=== PATIENT | female | born 2000 | race Caucasian/White ===

== ENCOUNTER 2018-04-11 22:58 | Emergency (ER) | payer OTHER | END 2018-04-12 01:55 | disposition home or self-care (01) | LOC: FTE 22:58 | DX: L02.511 Cutaneous abscess of right hand (principal) | CPT/HCPCS: 99284; Z7502 ==

== ENCOUNTER 2018-05-31 23:03 | Emergency (ER) | payer OTHER ==
[2018-06-01] MEDS: ACETAMINOPHEN 325 MG TAB PO (02:59)
[2018-06-01 03:08] LABS: ADD MAN DIFF? NO
[2018-06-01 03:12] LABS: WHITE BLOOD COUNT 11.4 10^3/ul (4.8-10.8)
[2018-06-01 03:12] LABS: BASOPHILS % 0.3 % (0.0-2.0); EOSINOPHILS % 0.1 % (0.0-7.0); HEMATOCRIT 35.4 % (37.0-47.0); HEMOGLOBIN 11.7 g/dl (12.0-16.0); LYMPHOCYTES # 1.3 10^3/ul (0.8-2.9); LYMPHOCYTES % 11.3 % (18.0-55.0); MEAN CORPUSCULAR HGB CONC 33.1 g/dl (32.0-37.0); MEAN CORPUSCULAR VOLUME 96.7 fl (72.0-104.0); MEAN PLATELET VOLUME 9.3 fl (7.4-10.4); MONOCYTE # 1.2 10^3/ul (0.3-0.9); MONOCYTES % 10.4 % (0.0-13.0); NEUTROPHIL # 8.8 10^3/ul (1.6-7.5); NEUTROPHILS % 77.4 % (30.0-74.0); PLATELET COUNT 189 10^3/UL (140-415); RED BLOOD COUNT 3.66 10^6/ul (4.20-5.40); RED CELL DISTRIBUTION WIDTH 12.4 % (11.5-14.5)
[2018-06-01 03:25] LABS: ADD UMIC YES; UR AMORPHOUS CRYSTAL FEW /HPF (NONE SEEN); UR ASCORBIC ACID NEGATIVE (NEGATIVE); UR BACTERIA MODERATE /HPF (NONE SEEN); UR BILIRUBIN (Dip) NEGATIVE (NEGATIVE); UR BLOOD (Dip) 1+ mg/dL (NEGATIVE); UR CLARITY SLIGHTLY CLOUDY (CLEAR); UR COLOR YELLOW (YELLOW); UR GLUCOSE (Dip) NEGATIVE (NEGATIVE); UR KETONES (Dip) TRACE mg/dL (NEGATIVE); UR LEUKOCYTE ESTERASE (Dip) 1+ Leu/ul (NEGATIVE); UR MUCUS FEW /HPF (NONE SEEN); UR NITRITE (Dip) POSITIVE (NEGATIVE); UR RBC 2 /HPF (0-5); UR SQUAMOUS EPITHELIAL CELL FEW /HPF (FEW); UR TOTAL PROTEIN (Dip) NEGATIVE (NEGATIVE); UR UROBILINOGEN (Dip) NEGATIVE (NEGATIVE); UR WBC 36 /HPF (0-5)
[2018-06-01 03:34] LABS: ALANINE AMINOTRANSFERASE 28 IU/L (13-69); ALBUMIN 4.2 g/dl (3.3-4.9); ALBUMIN/GLOBULIN RATIO 1.35; ALKALINE PHOSPHATASE 56 IU/L (42-121); ANION GAP 16 (8-16); ASPARTATE AMINO TRANSFERASE 18 IU/L (15-46); BILIRUBIN,INDIRECT 0.6 mg/dl (0-1.1); BILIRUBIN,TOTAL 0.6 mg/dl (0.2-1.3); BLOOD UREA NITROGEN 8 mg/dl (7-20); CALCIUM 8.8 mg/dl (8.4-10.2); CARBON DIOXIDE 25 mmol/L (21-31); CHLORIDE 103 mmol/L (97-110); CREATININE 0.79 mg/dl (0.44-1.00); GLUCOSE 122 mg/dl (70-220); LIPASE 350 U/L (23-300); POTASSIUM 4.3 mmol/L (3.5-5.1); SODIUM 140 mmol/L (135-144); TOTAL PROTEIN 7.3 g/dl (6.1-8.1)
[2018-06-01] MEDS: CEFTRIAXONE 1 GM INJ IM (03:56)
[2018-06-01] MEDS: LIDOCAINE 2% (MDV) 20 ML INJ INJ (03:56)
== END 2018-06-01 05:04 | disposition home or self-care (01) ==
LOC: FTE 23:03
DX: N12 Tubulo-interstitial nephritis, not specified as acute or chronic (principal)
CPT/HCPCS: 36415; 80053; 81001; 83690; 84703; 85025; 96372; 99284-25

== ENCOUNTER 2018-06-30 23:48 | Emergency (ER) | payer OTHER ==
[2018-07-01 02:35] LABS: URINE BLOOD (Dip) POC Negative (NEGATIVE); URINE GLUCOSE (Dip) POC Negative (NEGATIVE); URINE KETONES (Dip) POC Negative (NEGATIVE); URINE LEUKOCYTE EST (Dip) POC Negative (NEGATIVE); URINE NITRITE (Dip) POC Negative (NEGATIVE); URINE TOTAL PROTEIN POC Negative (NEGATIVE)
[2018-07-01] MEDS: ONDANSETRON (ODT) 4 MG TAB ODT (02:44)
[2018-07-01] MEDS: IBUPROFEN 600 MG TAB PO (02:45)
== END 2018-07-01 04:17 | disposition home or self-care (01) ==
LOC: FTE 23:48
DX: R10.31 Right lower quadrant pain (principal); R10.32 Left lower quadrant pain; R11.2 Nausea with vomiting, unspecified
CPT/HCPCS: 81003; 81025; 99283

== ENCOUNTER 2018-09-21 15:57 | Emergency (ER) | payer SELFPAY, OTHER | END 2018-09-21 18:26 | disposition left against medical advice (07) | LOC: FTE 15:57 | DX: Z53.21 Procedure and treatment not carried out due to patient leaving prior to being seen by health care provider (principal) ==

== ENCOUNTER 2018-11-02 16:36 | Emergency (ER) | payer OTHER ==
[2018-11-02] MEDS: METOCLOPRAMIDE 10 MG TAB PO (18:01)
[2018-11-02] MEDS: ACETAMINOPHEN 500 MG TAB PO (18:01)
[2018-11-02 18:12] LABS: ADD UMIC NO; UR ASCORBIC ACID 40 mg/dL (NEGATIVE); UR BILIRUBIN (Dip) NEGATIVE (NEGATIVE); UR BLOOD (Dip) NEGATIVE (NEGATIVE); UR CLARITY CLEAR (CLEAR); UR COLOR YELLOW (YELLOW); UR GLUCOSE (Dip) NEGATIVE (NEGATIVE); UR KETONES (Dip) NEGATIVE (NEGATIVE); UR LEUKOCYTE ESTERASE (Dip) NEGATIVE Leu/ul (NEGATIVE); UR NITRITE (Dip) NEGATIVE (NEGATIVE); UR SPECIFIC GRAVITY (Dip) 1.016 (1.003-1.030); UR TOTAL PROTEIN (Dip) NEGATIVE (NEGATIVE); UR UROBILINOGEN (Dip) NEGATIVE (NEGATIVE)
== END 2018-11-02 19:02 | disposition home or self-care (01) ==
LOC: FTE 16:36
DX: O26.891 Other specified pregnancy related conditions, first trimester (principal); R11.0 Nausea; Z3A.13 13 weeks gestation of pregnancy
CPT/HCPCS: 81003; 99283

== ENCOUNTER 2018-11-29 19:37 | Inpatient (IN) | payer OTHER ==
[2018-11-29] MEDS: ACETAMINOPHEN 325 MG TAB PO (21:12)
[2018-11-29 21:18] LABS: URINE BLOOD (Dip) POC Negative (NEGATIVE); URINE GLUCOSE (Dip) POC Negative (NEGATIVE); URINE KETONES (Dip) POC Negative (NEGATIVE); URINE LEUKOCYTE EST (Dip) POC Negative (NEGATIVE); URINE NITRITE (Dip) POC Negative (NEGATIVE); URINE TOTAL PROTEIN POC Negative (NEGATIVE)
[2018-11-29 21:50] LABS: ADD MAN DIFF? NO
[2018-11-29 21:52] LABS: WHITE BLOOD COUNT 9.3 10^3/ul (4.8-10.8)
[2018-11-29 21:52] LABS: BASOPHILS % 0.1 % (0.0-2.0); EOSINOPHILS # 0.1 10^3/ul (0.0-0.5); EOSINOPHILS % 0.6 % (0.0-7.0); HEMATOCRIT 34.8 % (37.0-47.0); HEMOGLOBIN 11.9 g/dl (12.0-16.0); LYMPHOCYTES # 1.8 10^3/ul (0.8-2.9); LYMPHOCYTES % 18.8 % (18.0-55.0); MEAN CORPUSCULAR HEMOGLOBIN 32.2 pg (29.0-33.0); MEAN CORPUSCULAR HGB CONC 34.2 g/dl (32.0-37.0); MEAN CORPUSCULAR VOLUME 94.1 fl (72.0-104.0); MONOCYTE # 0.4 10^3/ul (0.3-0.9); MONOCYTES % 4.6 % (0.0-13.0); NEUTROPHILS % 75.3 % (30.0-74.0); PLATELET COUNT 182 10^3/UL (140-415); RED CELL DISTRIBUTION WIDTH 12.5 % (11.5-14.5)
[2018-11-29 22:07] LABS: ALANINE AMINOTRANSFERASE 25 IU/L (13-69); ALBUMIN 3.9 g/dl (3.3-4.9); ALKALINE PHOSPHATASE 54 IU/L (42-121); ANION GAP 13 (5-13); ASPARTATE AMINO TRANSFERASE 20 IU/L (15-46); BILIRUBIN,INDIRECT 0.1 mg/dl (0-1.1); BILIRUBIN,TOTAL 0.1 mg/dl (0.2-1.3); BLOOD UREA NITROGEN 8 mg/dl (7-20); CALCIUM 9.2 mg/dl (8.4-10.2); CARBON DIOXIDE 26 mmol/L (21-31); CHLORIDE 101 mmol/L (97-110); CREATININE 0.36 mg/dl (0.44-1.00); Estimated GFR > 60 mL/min (>60); GLUCOSE 107 mg/dl (70-220); LIPASE 1684 U/L (23-300); POTASSIUM 3.9 mmol/L (3.5-5.1); SODIUM 140 mmol/L (135-144); TOTAL PROTEIN 6.9 g/dl (6.1-8.1)
[2018-11-29] MEDS: SOD CHLORIDE 0.9% 1,000 ML IV (23:04)
[2018-11-30] MEDS ORDERED: DOCUSATE SODIUM 100 MG CAP PO (05:00)
[2018-11-30] MEDS ORDERED: NACL 0.9% 3 ML SYG IV (05:00)
[2018-11-30] MEDS ORDERED: morphine 2 MG INJ IV (05:00)
[2018-11-30] MEDS ORDERED: ONDANSETRON 4 MG INJ IV (05:00)
[2018-11-30] MEDS ORDERED: MAGNESIUM HYDROXIDE 30ML CUP PO (05:00)
[2018-11-30] MEDS ORDERED: morphine SULFATE/PF (2 MG/2 ML) SYG IV (05:00)
[2018-11-30] MEDS ORDERED: BISACODYL 10 MG SUPP PR (05:00)
[2018-11-30] MEDS: DEXTROSE 5%-0.9% NACL 1,000 ML IV ×3 (05:39→20:43)
[2018-11-30 06:24] LABS: CHOL/HDL RATIO 2.1 RATIO; HDL CHOLESTEROL 68 mg/dl (33-83); LDL CHOLESTEROL,CALCULATED 66 mg/dl; TRIGLYCERIDES 71 mg/dl (0-149)
[2018-11-30 06:24] LABS: CHOLESTEROL 148 mg/dl (100-200)
[2018-11-30 06:31] LABS: AMYLASE 295 U/L (11-123)
[2018-11-30 06:47] LABS: LIPASE 2209 U/L (23-300)
[2018-11-30] MEDS: FAMOTIDINE 20 MG INJ IV ×2 (09:41→20:43)
[2018-11-30] MEDS: ACETAMINOPHEN 325 MG TAB PO (09:42)
[2018-11-30 11:45] LABS: ALANINE AMINOTRANSFERASE 19 IU/L (13-69); ALBUMIN 3.2 g/dl (3.3-4.9); ALBUMIN/GLOBULIN RATIO 1.28; ALKALINE PHOSPHATASE 46 IU/L (42-121); ANION GAP 7 (5-13); ASPARTATE AMINO TRANSFERASE 18 IU/L (15-46); BILIRUBIN,INDIRECT 0.1 mg/dl (0-1.1); BILIRUBIN,TOTAL 0.1 mg/dl (0.2-1.3); BLOOD UREA NITROGEN 7 mg/dl (7-20); CALCIUM 8.4 mg/dl (8.4-10.2); CARBON DIOXIDE 23 mmol/L (21-31); CHLORIDE 107 mmol/L (97-110); CREATININE 0.37 mg/dl (0.44-1.00); Estimated GFR > 60 mL/min (>60); POTASSIUM 3.8 mmol/L (3.5-5.1); SODIUM 137 mmol/L (135-144); TOTAL PROTEIN 5.7 g/dl (6.1-8.1)
[2018-11-30 11:48] LABS: INR 0.97
[2018-11-30 11:50] LABS: GLUCOSE 85 mg/dl (70-220)
[2018-12-01] MEDS: DEXTROSE 5%-0.9% NACL 1,000 ML IV ×3 (02:11→18:50)
[2018-12-01 06:41] LABS: ADD MAN DIFF? NO
[2018-12-01 06:47] LABS: BASOPHILS % 0.1 % (0.0-2.0); EOSINOPHILS # 0.1 10^3/ul (0.0-0.5); EOSINOPHILS % 0.9 % (0.0-7.0); HEMATOCRIT 29.5 % (37.0-47.0); LYMPHOCYTES # 2.2 10^3/ul (0.8-2.9); LYMPHOCYTES % 29.3 % (18.0-55.0); MEAN CORPUSCULAR HEMOGLOBIN 32.7 pg (29.0-33.0); MEAN CORPUSCULAR HGB CONC 33.9 g/dl (32.0-37.0); MEAN CORPUSCULAR VOLUME 96.4 fl (72.0-104.0); MEAN PLATELET VOLUME 10.9 fl (7.4-10.4); MONOCYTE # 0.5 10^3/ul (0.3-0.9); NEUTROPHIL # 4.7 10^3/ul (1.6-7.5); NEUTROPHILS % 63.2 % (30.0-74.0); PLATELET COUNT 161 10^3/UL (140-415); RED BLOOD COUNT 3.06 10^6/ul (4.20-5.40); RED CELL DISTRIBUTION WIDTH 12.8 % (11.5-14.5)
[2018-12-01 06:47] LABS: WHITE BLOOD COUNT 7.4 10^3/ul (4.8-10.8)
[2018-12-01 07:07] LABS: ALBUMIN/GLOBULIN RATIO 1.14; ANION GAP 6 (5-13); Estimated GFR > 60 mL/min (>60); LIPASE 590 U/L (23-300)
[2018-12-01 07:07] LABS: AMYLASE 185 U/L (11-123)
[2018-12-01 07:09] LABS: ALANINE AMINOTRANSFERASE 25 IU/L (13-69); ALBUMIN 3.1 g/dl (3.3-4.9); ALKALINE PHOSPHATASE 46 IU/L (42-121); ASPARTATE AMINO TRANSFERASE 15 IU/L (15-46); BILIRUBIN,INDIRECT 0.1 mg/dl (0-1.1); BILIRUBIN,TOTAL 0.1 mg/dl (0.2-1.3); BLOOD UREA NITROGEN 5 mg/dl (7-20); CALCIUM 8.3 mg/dl (8.4-10.2); CARBON DIOXIDE 24 mmol/L (21-31); CHLORIDE 105 mmol/L (97-110); CREATININE 0.41 mg/dl (0.44-1.00); GLUCOSE 82 mg/dl (70-220); MAGNESIUM 1.7 mg/dl (1.7-2.5); PHOSPHORUS 3.9 mg/dl (2.5-4.9); POTASSIUM 3.8 mmol/L (3.5-5.1); SODIUM 135 mmol/L (135-144); TOTAL PROTEIN 5.8 g/dl (6.1-8.1)
[2018-12-01] MEDS: FAMOTIDINE 20 MG INJ IV ×2 (08:39→21:10)
[2018-12-01] MEDS: ACETAMINOPHEN 325 MG TAB PO (22:18)
[2018-12-02] MEDS: DEXTROSE 5%-0.9% NACL 1,000 ML IV ×2 (05:11→14:21)
[2018-12-02 06:02] LABS: ADD MAN DIFF? NO
[2018-12-02 06:08] LABS: WHITE BLOOD COUNT 7.7 10^3/ul (4.8-10.8)
[2018-12-02 06:08] LABS: BASOPHILS % 0.3 % (0.0-2.0); EOSINOPHILS # 0.1 10^3/ul (0.0-0.5); EOSINOPHILS % 1.2 % (0.0-7.0); HEMATOCRIT 30.8 % (37.0-47.0); HEMOGLOBIN 10.5 g/dl (12.0-16.0); LYMPHOCYTES # 2.1 10^3/ul (0.8-2.9); LYMPHOCYTES % 26.9 % (18.0-55.0); MEAN CORPUSCULAR HEMOGLOBIN 32.8 pg (29.0-33.0); MEAN CORPUSCULAR HGB CONC 34.1 g/dl (32.0-37.0); MEAN CORPUSCULAR VOLUME 96.3 fl (72.0-104.0); MONOCYTE # 0.5 10^3/ul (0.3-0.9); NEUTROPHILS % 64.9 % (30.0-74.0); PLATELET COUNT 163 10^3/UL (140-415); RED CELL DISTRIBUTION WIDTH 12.5 % (11.5-14.5)
[2018-12-02 06:38] LABS: ALANINE AMINOTRANSFERASE 22 IU/L (13-69); ALBUMIN 3.2 g/dl (3.3-4.9); ALKALINE PHOSPHATASE 46 IU/L (42-121); AMYLASE 183 U/L (11-123); ANION GAP 6 (5-13); ASPARTATE AMINO TRANSFERASE 19 IU/L (15-46); BILIRUBIN,INDIRECT 0.1 mg/dl (0-1.1); BILIRUBIN,TOTAL 0.1 mg/dl (0.2-1.3); BLOOD UREA NITROGEN 4 mg/dl (7-20); CALCIUM 8.4 mg/dl (8.4-10.2); CARBON DIOXIDE 25 mmol/L (21-31); CHLORIDE 105 mmol/L (97-110); CREATININE 0.45 mg/dl (0.44-1.00); Estimated GFR > 60 mL/min (>60); GLUCOSE 74 mg/dl (70-220); LIPASE 810 U/L (23-300); SODIUM 136 mmol/L (135-144); TOTAL PROTEIN 6.1 g/dl (6.1-8.1)
[2018-12-02] MEDS: FAMOTIDINE 20 MG INJ IV ×2 (08:22→20:38)
[2018-12-03] MEDS: DEXTROSE 5%-0.9% NACL 1,000 ML IV ×4 (00:19→18:35)
[2018-12-03] MEDS: ACETAMINOPHEN 325 MG TAB PO (05:35)
[2018-12-03 07:08] LABS: ALANINE AMINOTRANSFERASE 21 IU/L (13-69); ALBUMIN 3.4 g/dl (3.3-4.9); ALBUMIN/GLOBULIN RATIO 1.25; ALKALINE PHOSPHATASE 60 IU/L (42-121); AMYLASE 520 U/L (11-123); ANION GAP 8 (5-13); ASPARTATE AMINO TRANSFERASE 22 IU/L (15-46); BILIRUBIN,INDIRECT 0.3 mg/dl (0-1.1); BILIRUBIN,TOTAL 0.3 mg/dl (0.2-1.3); BLOOD UREA NITROGEN 5 mg/dl (7-20); CALCIUM 8.7 mg/dl (8.4-10.2); CARBON DIOXIDE 23 mmol/L (21-31); CHLORIDE 106 mmol/L (97-110); Estimated GFR > 60 mL/min (>60); GLUCOSE 93 mg/dl (70-220); SODIUM 137 mmol/L (135-144); TOTAL PROTEIN 6.1 g/dl (6.1-8.1)
[2018-12-03 08:00] LABS: LIPASE 5685 U/L (23-300)
[2018-12-03] MEDS: FAMOTIDINE 20 MG INJ IV ×2 (08:36→20:25)
[2018-12-04] MEDS: DEXTROSE 5%-0.9% NACL 1,000 ML IV ×3 (02:16→18:10)
[2018-12-04 07:10] LABS: ALANINE AMINOTRANSFERASE 21 IU/L (13-69); ALBUMIN 3.2 g/dl (3.3-4.9); ALBUMIN/GLOBULIN RATIO 1.23; ALKALINE PHOSPHATASE 61 IU/L (42-121); AMYLASE 185 U/L (11-123); ANION GAP 6 (5-13); ASPARTATE AMINO TRANSFERASE 20 IU/L (15-46); BILIRUBIN,INDIRECT 0.1 mg/dl (0-1.1); BILIRUBIN,TOTAL 0.1 mg/dl (0.2-1.3); BLOOD UREA NITROGEN 4 mg/dl (7-20); CALCIUM 8.4 mg/dl (8.4-10.2); CARBON DIOXIDE 23 mmol/L (21-31); CHLORIDE 108 mmol/L (97-110); CREATININE 0.42 mg/dl (0.44-1.00); Estimated GFR > 60 mL/min (>60); GLUCOSE 88 mg/dl (70-220); LIPASE 374 U/L (23-300); SODIUM 137 mmol/L (135-144); TOTAL PROTEIN 5.8 g/dl (6.1-8.1)
[2018-12-04] MEDS: FAMOTIDINE 20 MG INJ IV ×2 (08:10→21:02)
[2018-12-05] MEDS: DEXTROSE 5%-0.9% NACL 1,000 ML IV ×2 (04:08→13:26)
[2018-12-05 06:12] LABS: ADD MAN DIFF? NO
[2018-12-05 06:18] LABS: WHITE BLOOD COUNT 7.7 10^3/ul (4.8-10.8)
[2018-12-05 06:18] LABS: BASOPHILS % 0.3 % (0.0-2.0); EOSINOPHILS # 0.1 10^3/ul (0.0-0.5); EOSINOPHILS % 1.3 % (0.0-7.0); HEMATOCRIT 28.6 % (37.0-47.0); HEMOGLOBIN 9.6 g/dl (12.0-16.0); LYMPHOCYTES # 1.9 10^3/ul (0.8-2.9); LYMPHOCYTES % 24.6 % (18.0-55.0); MEAN CORPUSCULAR HEMOGLOBIN 32.3 pg (29.0-33.0); MEAN CORPUSCULAR HGB CONC 33.6 g/dl (32.0-37.0); MEAN CORPUSCULAR VOLUME 96.3 fl (72.0-104.0); MONOCYTE # 0.5 10^3/ul (0.3-0.9); MONOCYTES % 6.3 % (0.0-13.0); NEUTROPHIL # 5.1 10^3/ul (1.6-7.5); NEUTROPHILS % 67.1 % (30.0-74.0); PLATELET COUNT 142 10^3/UL (140-415); RED BLOOD COUNT 2.97 10^6/ul (4.20-5.40); RED CELL DISTRIBUTION WIDTH 12.3 % (11.5-14.5)
[2018-12-05 06:51] LABS: ALANINE AMINOTRANSFERASE 30 IU/L (13-69); ALBUMIN 3.1 g/dl (3.3-4.9); ALBUMIN/GLOBULIN RATIO 1.14; ALKALINE PHOSPHATASE 57 IU/L (42-121); AMYLASE 141 U/L (11-123); ANION GAP 7 (5-13); ASPARTATE AMINO TRANSFERASE 16 IU/L (15-46); BILIRUBIN,INDIRECT 0.1 mg/dl (0-1.1); BILIRUBIN,TOTAL 0.1 mg/dl (0.2-1.3); BLOOD UREA NITROGEN 4 mg/dl (7-20); CALCIUM 8.5 mg/dl (8.4-10.2); CARBON DIOXIDE 25 mmol/L (21-31); CHLORIDE 104 mmol/L (97-110); CREATININE 0.48 mg/dl (0.44-1.00); Estimated GFR > 60 mL/min (>60); GLUCOSE 86 mg/dl (70-220); LIPASE 508 U/L (23-300); POTASSIUM 3.6 mmol/L (3.5-5.1); SODIUM 136 mmol/L (135-144); TOTAL PROTEIN 5.8 g/dl (6.1-8.1)
[2018-12-05 07:03] LABS: MAGNESIUM 1.7 mg/dl (1.7-2.5)
[2018-12-05] MEDS: FAMOTIDINE 20 MG INJ IV ×2 (08:17→20:50)
[2018-12-05] MEDS: LIDOCAINE 1% (MPF) 5 ML VIAL SC (10:00)
[2018-12-05 11:38] LABS: ALANINE AMINOTRANSFERASE 22 IU/L (13-69); ALBUMIN 3.3 g/dl (3.3-4.9); ALBUMIN/GLOBULIN RATIO 1.22; ALKALINE PHOSPHATASE 68 IU/L (42-121); ANION GAP 7 (5-13); ASPARTATE AMINO TRANSFERASE 17 IU/L (15-46); BILIRUBIN,INDIRECT 0.1 mg/dl (0-1.1); BILIRUBIN,TOTAL 0.1 mg/dl (0.2-1.3); BLOOD UREA NITROGEN 4 mg/dl (7-20); CALCIUM 8.6 mg/dl (8.4-10.2); CARBON DIOXIDE 25 mmol/L (21-31); CHLORIDE 105 mmol/L (97-110); Estimated GFR > 60 mL/min (>60); GLUCOSE 84 mg/dl (70-220); MAGNESIUM 1.7 mg/dl (1.7-2.5); PHOSPHORUS 3.2 mg/dl (2.5-4.9); POTASSIUM 3.6 mmol/L (3.5-5.1); SODIUM 137 mmol/L (135-144); TRIGLYCERIDES 101 mg/dl (0-149)
[2018-12-05 11:44] LABS: PREALBUMIN 14.8 mg/dl (17.6-36.0)
[2018-12-05] MEDS: ACCU-CHEK XX ×3 (13:00→20:47)
[2018-12-05] MEDS ORDERED: TPN 1,000 ML IV (13:45)
[2018-12-05] MEDS: TPN 1,000 ML IV (17:21)
[2018-12-06] MEDS: ACCU-CHEK XX ×6 (01:00→23:35)
[2018-12-06] MEDS: TPN 1,000 ML IV ×2 (06:20→20:19)
[2018-12-06 07:45] LABS: LIPASE 867 U/L (23-300)
[2018-12-06 07:48] LABS: ANION GAP 7 (5-13); BLOOD UREA NITROGEN 8 mg/dl (7-20); CALCIUM 8.7 mg/dl (8.4-10.2); CARBON DIOXIDE 24 mmol/L (21-31); CHLORIDE 104 mmol/L (97-110); CREATININE 0.33 mg/dl (0.44-1.00); Estimated GFR > 60 mL/min (>60); GLUCOSE 83 mg/dl (70-220); MAGNESIUM 1.7 mg/dl (1.7-2.5); PHOSPHORUS 3.2 mg/dl (2.5-4.9); POTASSIUM 3.8 mmol/L (3.5-5.1); SODIUM 135 mmol/L (135-144)
[2018-12-06] MEDS: FAMOTIDINE 20 MG INJ IV ×2 (09:27→20:19)
[2018-12-06] MEDS: MAGNESIUM SULFATE 1 GM/D5W 100 ML IVPB (15:57)
[2018-12-06] MEDS: FAT EMULSION 20% 250 ML IV (16:19)
[2018-12-07] MEDS: ACCU-CHEK XX ×3 (05:17→20:21)
[2018-12-07 06:56] LABS: ANION GAP 12 (5-13); BLOOD UREA NITROGEN 11 mg/dl (7-20); CALCIUM 8.9 mg/dl (8.4-10.2); CARBON DIOXIDE 23 mmol/L (21-31); CHLORIDE 104 mmol/L (97-110); CREATININE 0.34 mg/dl (0.44-1.00); Estimated GFR > 60 mL/min (>60); GLUCOSE 76 mg/dl (70-220); MAGNESIUM 1.9 mg/dl (1.7-2.5); PHOSPHORUS 3.6 mg/dl (2.5-4.9); POTASSIUM 3.9 mmol/L (3.5-5.1); SODIUM 139 mmol/L (135-144)
[2018-12-07 06:56] LABS: LIPASE 1007 U/L (23-300)
[2018-12-07] MEDS: FAMOTIDINE 20 MG INJ IV ×2 (08:34→20:21)
[2018-12-07] MEDS: TPN 1,000 ML IV ×2 (09:34→11:12)
[2018-12-07] MEDS: FAT EMULSION 20% 250 ML IV (15:44)
[2018-12-08] MEDS: TPN 1,000 ML IV ×2 (01:11→14:39)
[2018-12-08 06:50] LABS: ANION GAP 10 (5-13); BLOOD UREA NITROGEN 10 mg/dl (7-20); CALCIUM 8.9 mg/dl (8.4-10.2); CARBON DIOXIDE 23 mmol/L (21-31); CHLORIDE 105 mmol/L (97-110); CREATININE 0.31 mg/dl (0.44-1.00); Estimated GFR > 60 mL/min (>60); GLUCOSE 91 mg/dl (70-220); MAGNESIUM 1.9 mg/dl (1.7-2.5); PHOSPHORUS 3.2 mg/dl (2.5-4.9); POTASSIUM 3.8 mmol/L (3.5-5.1); SODIUM 138 mmol/L (135-144)
[2018-12-08] MEDS: FAMOTIDINE 20 MG INJ IV ×2 (08:21→20:44)
[2018-12-08] MEDS: ACCU-CHEK XX ×2 (08:21→20:52)
[2018-12-08] MEDS: MAGNESIUM SULFATE 1 GM/D5W 100 ML IVPB (11:57)
[2018-12-08] MEDS: POTASSIUM CHLORIDE 50 ML IVPB (13:10)
[2018-12-08] MEDS: FAT EMULSION 20% 250 ML IV (16:05)
[2018-12-09] MEDS: TPN 1,000 ML IV ×2 (02:00→04:28)
[2018-12-09 06:15] LABS: ANION GAP 12 (5-13); BLOOD UREA NITROGEN 9 mg/dl (7-20); CALCIUM 8.7 mg/dl (8.4-10.2); CARBON DIOXIDE 24 mmol/L (21-31); CHLORIDE 104 mmol/L (97-110); Estimated GFR > 60 mL/min (>60); GLUCOSE 89 mg/dl (70-220); MAGNESIUM 1.8 mg/dl (1.7-2.5); POTASSIUM 4.2 mmol/L (3.5-5.1); SODIUM 140 mmol/L (135-144)
[2018-12-09 06:21] LABS: LIPASE 417 U/L (23-300)
[2018-12-09] MEDS: FAMOTIDINE 20 MG INJ IV (08:31)
[2018-12-09] MEDS: ACCU-CHEK XX (08:34)
[2018-12-09 16:36] LABS: IMMUNOGLOBULIN A 84 mg/dl (70-400); IMMUNOGLOBULIN G 725 mg/dl (700-1600)
== END 2018-12-09 17:19 | disposition home health service (06) | DRG 831 ==
LOC: PP2 11-30 01:35 → FTE 19:37
PROVIDERS: Internal Medicine
PROC: 02HV33Z Insertion of Infusion Device into Superior Vena Cava, Percutaneous Approach (ICD-10-PCS; principal; 2018-12-05)
DX: O99.612 Diseases of the digestive system complicating pregnancy, second trimester (principal); K85.10 Biliary acute pancreatitis without necrosis or infection; K86.3 Pseudocyst of pancreas; Z3A.17 17 weeks gestation of pregnancy
CPT/HCPCS: 36569; 71045; 74181; 76705; 76805; 76937; 80048; 80053; 80061; 81003; 82150; 82784; 82787; 82962; 83690; 83735; 84100; 84134; 84478; 85025; 85610; 85730; 99285-25; G0378

== ENCOUNTER 2019-01-16 13:36 | Outpatient (CLI) | payer OTHER ==
[2019-01-16] MEDS ORDERED: LACTATED RINGER'S 1,000 ML IV (16:00)
[2019-01-16 16:31] LABS: ADD MAN DIFF? NO
[2019-01-16 16:34] LABS: WHITE BLOOD COUNT 8.5 10^3/ul (4.8-10.8)
[2019-01-16 16:34] LABS: BASOPHILS % 0.1 % (0.0-2.0); EOSINOPHILS % 0.5 % (0.0-7.0); HEMOGLOBIN 10.4 g/dl (12.0-16.0); LYMPHOCYTES # 1.4 10^3/ul (0.8-2.9); LYMPHOCYTES % 16.1 % (18.0-55.0); MEAN CORPUSCULAR HEMOGLOBIN 32.6 pg (29.0-33.0); MEAN CORPUSCULAR HGB CONC 33.5 g/dl (32.0-37.0); MEAN CORPUSCULAR VOLUME 97.2 fl (72.0-104.0); MEAN PLATELET VOLUME 10.4 fl (7.4-10.4); MONOCYTE # 0.4 10^3/ul (0.3-0.9); MONOCYTES % 4.5 % (0.0-13.0); NEUTROPHIL # 6.6 10^3/ul (1.6-7.5); NEUTROPHILS % 78.2 % (30.0-74.0); PLATELET COUNT 170 10^3/UL (140-415); RED BLOOD COUNT 3.19 10^6/ul (4.20-5.40); RED CELL DISTRIBUTION WIDTH 12.7 % (11.5-14.5)
[2019-01-16 16:50] LABS: ALANINE AMINOTRANSFERASE 19 IU/L (13-69); ALBUMIN 3.4 g/dl (3.3-4.9); ALKALINE PHOSPHATASE 77 IU/L (42-121); AMYLASE 202 U/L (11-123); ASPARTATE AMINO TRANSFERASE 20 IU/L (15-46); LIPASE 801 U/L (23-300); TOTAL PROTEIN 6.1 g/dl (6.1-8.1)
== END 2019-01-16 20:03 | disposition home or self-care (01) ==
LOC: OBT 13:36 → L-D 13:38 → OBT 20:03
DX: O26.892 Other specified pregnancy related conditions, second trimester (principal); Z3A.24 24 weeks gestation of pregnancy; K86.2 Cyst of pancreas
CPT/HCPCS: 76705; 76815; 76817; 76818; 80076; 82150; 83690; 85025

== ENCOUNTER 2019-01-31 14:46 | Inpatient (IN) | payer OTHER ==
[2019-01-31 16:32] LABS: ADD MAN DIFF? NO
[2019-01-31 16:38] LABS: BASOPHILS % 0.2 % (0.0-2.0); EOSINOPHILS % 0.4 % (0.0-7.0); HEMOGLOBIN 10.3 g/dl (12.0-16.0); LYMPHOCYTES # 1.4 10^3/ul (0.8-2.9); LYMPHOCYTES % 13.9 % (18.0-55.0); MEAN CORPUSCULAR HEMOGLOBIN 32.8 pg (29.0-33.0); MEAN CORPUSCULAR HGB CONC 33.2 g/dl (32.0-37.0); MEAN CORPUSCULAR VOLUME 98.7 fl (72.0-104.0); MEAN PLATELET VOLUME 9.9 fl (7.4-10.4); MONOCYTE # 0.4 10^3/ul (0.3-0.9); MONOCYTES % 4.4 % (0.0-13.0); NEUTROPHILS % 80.2 % (30.0-74.0); PLATELET COUNT 206 10^3/UL (140-415); RED BLOOD COUNT 3.14 10^6/ul (4.20-5.40); RED CELL DISTRIBUTION WIDTH 12.1 % (11.5-14.5)
[2019-01-31 17:09] LABS: ALANINE AMINOTRANSFERASE 37 IU/L (13-69); ALBUMIN 3.5 g/dl (3.3-4.9); ALBUMIN/GLOBULIN RATIO 1.12; ALKALINE PHOSPHATASE 138 IU/L (42-121); AMYLASE 635 U/L (11-123); ANION GAP 8 (5-13); ASPARTATE AMINO TRANSFERASE 30 IU/L (15-46); BILIRUBIN,INDIRECT 0.1 mg/dl (0-1.1); BILIRUBIN,TOTAL 0.1 mg/dl (0.2-1.3); BLOOD UREA NITROGEN 8 mg/dl (7-20); CALCIUM 9.2 mg/dl (8.4-10.2); CARBON DIOXIDE 22 mmol/L (21-31); CHLORIDE 107 mmol/L (97-110); CREATININE 0.38 mg/dl (0.44-1.00); Estimated GFR > 60 mL/min (>60); GLUCOSE 85 mg/dl (70-220); POTASSIUM 4.4 mmol/L (3.5-5.1); SODIUM 137 mmol/L (135-144); TOTAL PROTEIN 6.6 g/dl (6.1-8.1)
[2019-01-31 17:16] LABS: LIPASE 3903 U/L (23-300)
[2019-01-31 17:21] LABS: ADD UMIC YES; UR AMORPHOUS CRYSTAL FEW /HPF (NONE SEEN); UR ASCORBIC ACID NEGATIVE (NEGATIVE); UR BILIRUBIN (Dip) NEGATIVE (NEGATIVE); UR BLOOD (Dip) NEGATIVE (NEGATIVE); UR CLARITY CLOUDY (CLEAR); UR COLOR YELLOW (YELLOW); UR GLUCOSE (Dip) NEGATIVE (NEGATIVE); UR KETONES (Dip) NEGATIVE (NEGATIVE); UR LEUKOCYTE ESTERASE (Dip) NEGATIVE Leu/ul (NEGATIVE); UR MUCUS FEW /HPF (NONE SEEN); UR NITRITE (Dip) NEGATIVE (NEGATIVE); UR RBC 0 /HPF (0-5); UR SPECIFIC GRAVITY (Dip) 1.014 (1.003-1.030); UR SQUAMOUS EPITHELIAL CELL FEW /HPF (FEW); UR TOTAL PROTEIN (Dip) NEGATIVE (NEGATIVE); UR UROBILINOGEN (Dip) NEGATIVE (NEGATIVE); UR WBC 0 /HPF (0-5)
[2019-01-31] MEDS: DEXTROSE 5%-LR 1,000 ML IV (18:28)
[2019-02-01] MEDS: DEXTROSE 5%-LR 1,000 ML IV ×3 (02:19→18:55)
[2019-02-01 08:56] LABS: ADD MAN DIFF? NO
[2019-02-01 09:02] LABS: BASOPHILS % 0.2 % (0.0-2.0); EOSINOPHILS # 0.1 10^3/ul (0.0-0.5); EOSINOPHILS % 0.7 % (0.0-7.0); HEMATOCRIT 29.5 % (37.0-47.0); HEMOGLOBIN 9.8 g/dl (12.0-16.0); LYMPHOCYTES # 1.3 10^3/ul (0.8-2.9); LYMPHOCYTES % 16.1 % (18.0-55.0); MEAN CORPUSCULAR HEMOGLOBIN 32.6 pg (29.0-33.0); MEAN CORPUSCULAR HGB CONC 33.2 g/dl (32.0-37.0); MEAN PLATELET VOLUME 10.1 fl (7.4-10.4); MONOCYTE # 0.4 10^3/ul (0.3-0.9); MONOCYTES % 5.4 % (0.0-13.0); NEUTROPHIL # 6.2 10^3/ul (1.6-7.5); NEUTROPHILS % 76.7 % (30.0-74.0); PLATELET COUNT 200 10^3/UL (140-415); RED BLOOD COUNT 3.01 10^6/ul (4.20-5.40); RED CELL DISTRIBUTION WIDTH 12.1 % (11.5-14.5)
[2019-02-01 09:21] LABS: AMYLASE 430 U/L (11-123)
[2019-02-01 09:31] LABS: ALANINE AMINOTRANSFERASE 46 IU/L (13-69); ALBUMIN 3.1 g/dl (3.3-4.9); ALKALINE PHOSPHATASE 132 IU/L (42-121); ANION GAP 10 (5-13); ASPARTATE AMINO TRANSFERASE 34 IU/L (15-46); BILIRUBIN,INDIRECT 0.3 mg/dl (0-1.1); BILIRUBIN,TOTAL 0.3 mg/dl (0.2-1.3); BLOOD UREA NITROGEN 5 mg/dl (7-20); CALCIUM 8.6 mg/dl (8.4-10.2); CARBON DIOXIDE 25 mmol/L (21-31); CHLORIDE 105 mmol/L (97-110); CREATININE 0.36 mg/dl (0.44-1.00); Estimated GFR > 60 mL/min (>60); GLUCOSE 86 mg/dl (70-220); POTASSIUM 3.6 mmol/L (3.5-5.1); SODIUM 140 mmol/L (135-144); TOTAL PROTEIN 5.9 g/dl (6.1-8.1)
[2019-02-01 09:43] LABS: LIPASE 3079 U/L (23-300)
[2019-02-02] MEDS: DEXTROSE 5%-LR 1,000 ML IV ×3 (02:37→20:34)
[2019-02-02 05:40] LABS: ADD MAN DIFF? NO
[2019-02-02 05:51] LABS: BASOPHILS % 0.3 % (0.0-2.0); EOSINOPHILS # 0.1 10^3/ul (0.0-0.5); EOSINOPHILS % 1.2 % (0.0-7.0); HEMATOCRIT 29.3 % (37.0-47.0); HEMOGLOBIN 9.8 g/dl (12.0-16.0); LYMPHOCYTES # 1.7 10^3/ul (0.8-2.9); LYMPHOCYTES % 22.4 % (18.0-55.0); MEAN CORPUSCULAR HEMOGLOBIN 32.8 pg (29.0-33.0); MEAN CORPUSCULAR HGB CONC 33.4 g/dl (32.0-37.0); MEAN PLATELET VOLUME 9.9 fl (7.4-10.4); MONOCYTE # 0.6 10^3/ul (0.3-0.9); MONOCYTES % 7.3 % (0.0-13.0); NEUTROPHIL # 5.1 10^3/ul (1.6-7.5); NEUTROPHILS % 67.6 % (30.0-74.0); PLATELET COUNT 214 10^3/UL (140-415); RED BLOOD COUNT 2.99 10^6/ul (4.20-5.40); RED CELL DISTRIBUTION WIDTH 11.9 % (11.5-14.5)
[2019-02-02 05:51] LABS: WHITE BLOOD COUNT 7.6 10^3/ul (4.8-10.8)
[2019-02-02 06:36] LABS: ALANINE AMINOTRANSFERASE 45 IU/L (13-69); ALBUMIN 3.1 g/dl (3.3-4.9); ALBUMIN/GLOBULIN RATIO 1.06; ALKALINE PHOSPHATASE 127 IU/L (42-121); AMYLASE 459 U/L (11-123); ANION GAP 9 (5-13); ASPARTATE AMINO TRANSFERASE 31 IU/L (15-46); BILIRUBIN,INDIRECT 0.3 mg/dl (0-1.1); BILIRUBIN,TOTAL 0.3 mg/dl (0.2-1.3); BLOOD UREA NITROGEN 3 mg/dl (7-20); CALCIUM 8.7 mg/dl (8.4-10.2); CARBON DIOXIDE 25 mmol/L (21-31); CHLORIDE 105 mmol/L (97-110); CREATININE 0.47 mg/dl (0.44-1.00); Estimated GFR > 60 mL/min (>60); GLUCOSE 89 mg/dl (70-220); POTASSIUM 3.8 mmol/L (3.5-5.1); SODIUM 139 mmol/L (135-144)
[2019-02-02 07:38] LABS: LIPASE 2297 U/L (23-300)
[2019-02-03] MEDS: DEXTROSE 5%-LR 1,000 ML IV ×2 (04:07→10:56)
== END 2019-02-03 15:32 | disposition home or self-care (01) | DRG 831 ==
LOC: OBT 14:46 → PP1 02-02 22:51 → L-D 14:47 → OBT 17:50 → L-D 17:50 → PP1 20:29
DX: O99.612 Diseases of the digestive system complicating pregnancy, second trimester (principal); K85.10 Biliary acute pancreatitis without necrosis or infection; K86.3 Pseudocyst of pancreas; K86.1 Other chronic pancreatitis; K80.20 Calculus of gallbladder without cholecystitis without obstruction; Z3A.26 26 weeks gestation of pregnancy
CPT/HCPCS: 74181; 76705; 76817; 80053; 81001; 82150; 83690; 85025

== ENCOUNTER 2019-02-16 01:05 | Inpatient (IN) | payer SELFPAY, OTHER ==
[2019-02-16 03:15] LABS: ADD MAN DIFF? NO
[2019-02-16 03:21] LABS: WHITE BLOOD COUNT 12.4 10^3/ul (4.8-10.8)
[2019-02-16 03:21] LABS: BASOPHILS % 0.2 % (0.0-2.0); EOSINOPHILS # 0.1 10^3/ul (0.0-0.5); EOSINOPHILS % 0.5 % (0.0-7.0); HEMATOCRIT 32.4 % (37.0-47.0); LYMPHOCYTES # 1.1 10^3/ul (0.8-2.9); LYMPHOCYTES % 9.1 % (18.0-55.0); MEAN CORPUSCULAR HEMOGLOBIN 32.4 pg (29.0-33.0); MEAN CORPUSCULAR VOLUME 95.3 fl (72.0-104.0); MEAN PLATELET VOLUME 10.2 fl (7.4-10.4); MONOCYTE # 0.6 10^3/ul (0.3-0.9); MONOCYTES % 4.7 % (0.0-13.0); NEUTROPHIL # 10.6 10^3/ul (1.6-7.5); NEUTROPHILS % 84.9 % (30.0-74.0); PLATELET COUNT 252 10^3/UL (140-415); RED CELL DISTRIBUTION WIDTH 11.9 % (11.5-14.5)
[2019-02-16] MEDS: LACTATED RINGER'S 1,000 ML IV ×3 (03:37→09:10)
[2019-02-16] MEDS: FAMOTIDINE 20 MG INJ IV (03:40)
[2019-02-16] MEDS: ONDANSETRON 4 MG INJ IV (03:43)
[2019-02-16 03:45] LABS: ALANINE AMINOTRANSFERASE 397 IU/L (13-69); ALBUMIN 3.6 g/dl (3.3-4.9); ALKALINE PHOSPHATASE 238 IU/L (42-121); AMYLASE 701 U/L (11-123); ANION GAP 8 (5-13); ASPARTATE AMINO TRANSFERASE 161 IU/L (15-46); BILIRUBIN,INDIRECT 0.4 mg/dl (0-1.1); BILIRUBIN,TOTAL 0.4 mg/dl (0.2-1.3); BLOOD UREA NITROGEN 7 mg/dl (7-20); CALCIUM 9.3 mg/dl (8.4-10.2); CARBON DIOXIDE 24 mmol/L (21-31); CHLORIDE 105 mmol/L (97-110); CREATININE 0.39 mg/dl (0.44-1.00); Estimated GFR > 60 mL/min (>60); GLUCOSE 110 mg/dl (70-220); SODIUM 137 mmol/L (135-144); TOTAL PROTEIN 7.2 g/dl (6.1-8.1)
[2019-02-16 03:57] LABS: LIPASE 2830 U/L (23-300)
[2019-02-16 04:08] LABS: ADD UMIC YES; UR AMORPHOUS CRYSTAL MODERATE /HPF (NONE SEEN); UR ASCORBIC ACID NEGATIVE (NEGATIVE); UR BACTERIA FEW /HPF (NONE SEEN); UR BILIRUBIN (Dip) NEGATIVE (NEGATIVE); UR BLOOD (Dip) NEGATIVE (NEGATIVE); UR CLARITY TURBID (CLEAR); UR COLOR AMBER (YELLOW); UR GLUCOSE (Dip) NEGATIVE (NEGATIVE); UR KETONES (Dip) NEGATIVE (NEGATIVE); UR LEUKOCYTE ESTERASE (Dip) NEGATIVE Leu/ul (NEGATIVE); UR MUCUS MODERATE /HPF (NONE SEEN); UR NITRITE (Dip) NEGATIVE (NEGATIVE); UR RBC 10 /HPF (0-5); UR SPECIFIC GRAVITY (Dip) 1.013 (1.003-1.030); UR SQUAMOUS EPITHELIAL CELL FEW /HPF (FEW); UR TOTAL PROTEIN (Dip) NEGATIVE (NEGATIVE); UR UROBILINOGEN (Dip) NEGATIVE (NEGATIVE); UR WBC 3 /HPF (0-5)
[2019-02-16] MEDS: ACETAMINOPHEN 1000MG/100ML IV 100 ML IVPB (05:19)
[2019-02-16] MEDS: AL HYDROX/MG HYDROX/SIMETH 30 ML CUP PO (05:19)
[2019-02-16] MEDS: CEFAZOLIN 2 GM/50 ML (PMX) 50 ML IVPB ×3 (08:07→23:46)
[2019-02-16] MEDS: morphine 4 MG/ML VIAL IV ×3 (08:32→20:43)
[2019-02-16] MEDS: PRENATAL VITAMIN PO (09:00)
[2019-02-16 15:01] LABS: CHOLESTEROL 185 mg/dl (100-200)
[2019-02-16 15:01] LABS: TRIGLYCERIDES 129 mg/dl (0-149)
[2019-02-16 15:24] LABS: HEPATITIS B SURFACE ANTIGEN NEGATIVE (NEGATIVE)
[2019-02-16] MEDS: DEXTROSE 5%-LR 1,000 ML IV (15:38)
[2019-02-16 15:42] LABS: HEPATITIS C VIRAL ANTIBODY NEGATIVE (NEGATIVE)
[2019-02-16 15:47] LABS: HEPATITIS B SURFACE ANTIBODY POSITIVE (NEGATIVE)
[2019-02-17] MEDS: DEXTROSE 5%-LR 1,000 ML IV ×4 (01:35→23:54)
[2019-02-17] MEDS: morphine 4 MG/ML VIAL IV (02:14)
[2019-02-17 07:18] LABS: ALANINE AMINOTRANSFERASE 313 IU/L (13-69); ALBUMIN 2.9 g/dl (3.3-4.9); ALBUMIN/GLOBULIN RATIO 0.93; ALKALINE PHOSPHATASE 168 IU/L (42-121); ANION GAP 9 (5-13); ASPARTATE AMINO TRANSFERASE 119 IU/L (15-46); BILIRUBIN,INDIRECT 0.4 mg/dl (0-1.1); BILIRUBIN,TOTAL 0.4 mg/dl (0.2-1.3); BLOOD UREA NITROGEN 4 mg/dl (7-20); CALCIUM 8.5 mg/dl (8.4-10.2); CARBON DIOXIDE 25 mmol/L (21-31); CHLORIDE 102 mmol/L (97-110); CREATININE 0.34 mg/dl (0.44-1.00); Estimated GFR > 60 mL/min (>60); GLUCOSE 128 mg/dl (70-220); POTASSIUM 3.8 mmol/L (3.5-5.1); SODIUM 136 mmol/L (135-144)
[2019-02-17 07:30] LABS: AMYLASE 211 U/L (11-123)
[2019-02-17 07:30] LABS: LIPASE 768 U/L (23-300)
[2019-02-17] MEDS: FAMOTIDINE 20 MG INJ IV (08:26)
[2019-02-17] MEDS: HYDROCODONE/APAP (5/325) TAB PO (08:28)
[2019-02-17] MEDS: PRENATAL VITAMIN PO (08:28)
[2019-02-17] MEDS: CEFAZOLIN 2 GM/50 ML (PMX) 50 ML IVPB ×3 (08:54→23:53)
[2019-02-18] MEDS: CEFAZOLIN 2 GM/50 ML (PMX) 50 ML IVPB ×3 (09:14→23:56)
[2019-02-18] MEDS: DEXTROSE 5%-LR 1,000 ML IV ×2 (09:14→18:54)
[2019-02-18] MEDS: PRENATAL VITAMIN PO (16:15)
[2019-02-18] MEDS ORDERED: DOCUSATE SODIUM 100 MG CAP PO (23:00)
[2019-02-19 06:51] LABS: ADD MAN DIFF? NO
[2019-02-19 06:59] LABS: WHITE BLOOD COUNT 5.8 10^3/ul (4.8-10.8)
[2019-02-19 06:59] LABS: BASOPHILS % 0.2 % (0.0-2.0); EOSINOPHILS # 0.2 10^3/ul (0.0-0.5); EOSINOPHILS % 2.7 % (0.0-7.0); HEMATOCRIT 27.7 % (37.0-47.0); HEMOGLOBIN 9.1 g/dl (12.0-16.0); LYMPHOCYTES # 1.5 10^3/ul (0.8-2.9); LYMPHOCYTES % 25.7 % (18.0-55.0); MEAN CORPUSCULAR HEMOGLOBIN 32.2 pg (29.0-33.0); MEAN CORPUSCULAR HGB CONC 32.9 g/dl (32.0-37.0); MEAN CORPUSCULAR VOLUME 97.9 fl (72.0-104.0); MEAN PLATELET VOLUME 9.7 fl (7.4-10.4); MONOCYTE # 0.4 10^3/ul (0.3-0.9); MONOCYTES % 6.2 % (0.0-13.0); NEUTROPHIL # 3.8 10^3/ul (1.6-7.5); NEUTROPHILS % 64.5 % (30.0-74.0); PLATELET COUNT 237 10^3/UL (140-415); RED BLOOD COUNT 2.83 10^6/ul (4.20-5.40)
[2019-02-19 07:32] LABS: ALANINE AMINOTRANSFERASE 134 IU/L (13-69); ALBUMIN 2.7 g/dl (3.3-4.9); ALBUMIN/GLOBULIN RATIO 0.93; ALKALINE PHOSPHATASE 159 IU/L (42-121); ANION GAP 5 (5-13); ASPARTATE AMINO TRANSFERASE 31 IU/L (15-46); BILIRUBIN,INDIRECT 0.3 mg/dl (0-1.1); BILIRUBIN,TOTAL 0.3 mg/dl (0.2-1.3); BLOOD UREA NITROGEN 3 mg/dl (7-20); CALCIUM 8.4 mg/dl (8.4-10.2); CARBON DIOXIDE 23 mmol/L (21-31); CHLORIDE 111 mmol/L (97-110); CREATININE 0.36 mg/dl (0.44-1.00); Estimated GFR > 60 mL/min (>60); GLUCOSE 77 mg/dl (70-220); LIPASE 840 U/L (23-300); POTASSIUM 3.6 mmol/L (3.5-5.1); SODIUM 139 mmol/L (135-144); TOTAL PROTEIN 5.6 g/dl (6.1-8.1)
[2019-02-19] MEDS: CEFAZOLIN 2 GM/50 ML (PMX) 50 ML IVPB (08:06)
[2019-02-19] MEDS: PRENATAL VITAMIN PO (09:08)
[2019-02-19] MEDS: DEXTROSE 5%-LR 1,000 ML IV (09:08)
== END 2019-02-19 15:16 | disposition home or self-care (01) | DRG 831 ==
LOC: OBT 01:05 → L-D 01:05 → OBT 06:15 → L-D 06:15 → PP1 14:52
DX: O99.613 Diseases of the digestive system complicating pregnancy, third trimester (principal); K83.1 Obstruction of bile duct; K86.1 Other chronic pancreatitis; K86.3 Pseudocyst of pancreas; R18.8 Other ascites; K80.20 Calculus of gallbladder without cholecystitis without obstruction; Z3A.28 28 weeks gestation of pregnancy
CPT/HCPCS: 36415; 74181; 76705; 76817; 76818; 80053; 81001; 82150; 82465; 83690; 84478; 85025; 86706; 86709; 86803; 87086; 87340; 96360; 96361; 96365

== ENCOUNTER 2019-03-23 09:02 | Inpatient (IN) | payer OTHER ==
[2019-03-23 10:53] LABS: ADD UMIC NO; UR ASCORBIC ACID NEGATIVE (NEGATIVE); UR BILIRUBIN (Dip) NEGATIVE (NEGATIVE); UR BLOOD (Dip) NEGATIVE (NEGATIVE); UR CLARITY SLIGHTLY CLOUDY (CLEAR); UR COLOR YELLOW (YELLOW); UR GLUCOSE (Dip) NEGATIVE (NEGATIVE); UR KETONES (Dip) NEGATIVE (NEGATIVE); UR LEUKOCYTE ESTERASE (Dip) NEGATIVE Leu/ul (NEGATIVE); UR NITRITE (Dip) NEGATIVE (NEGATIVE); UR RBC 2 /HPF (0-5); UR SPECIFIC GRAVITY (Dip) 1.011 (1.003-1.030); UR SQUAMOUS EPITHELIAL CELL FEW /HPF (FEW); UR TOTAL PROTEIN (Dip) NEGATIVE (NEGATIVE); UR UROBILINOGEN (Dip) NEGATIVE (NEGATIVE); UR WBC 1 /HPF (0-5)
[2019-03-23 12:14] LABS: ADD MAN DIFF? NO
[2019-03-23 12:19] LABS: BASOPHILS % 0.1 % (0.0-2.0); EOSINOPHILS % 0.3 % (0.0-7.0); HEMATOCRIT 34.1 % (37.0-47.0); HEMOGLOBIN 11.4 g/dl (12.0-16.0); LYMPHOCYTES # 1.2 10^3/ul (0.8-2.9); LYMPHOCYTES % 10.6 % (18.0-55.0); MEAN CORPUSCULAR HEMOGLOBIN 31.7 pg (29.0-33.0); MEAN CORPUSCULAR HGB CONC 33.4 g/dl (32.0-37.0); MEAN CORPUSCULAR VOLUME 94.7 fl (72.0-104.0); MEAN PLATELET VOLUME 10.7 fl (7.4-10.4); MONOCYTE # 0.3 10^3/ul (0.3-0.9); MONOCYTES % 2.8 % (0.0-13.0); NEUTROPHIL # 9.3 10^3/ul (1.6-7.5); NEUTROPHILS % 85.4 % (30.0-74.0); PLATELET COUNT 207 10^3/UL (140-415); RED CELL DISTRIBUTION WIDTH 12.8 % (11.5-14.5)
[2019-03-23 12:19] LABS: WHITE BLOOD COUNT 10.9 10^3/ul (4.8-10.8)
[2019-03-23 12:48] LABS: ALANINE AMINOTRANSFERASE 293 IU/L (13-69); ALBUMIN 3.5 g/dl (3.3-4.9); ALBUMIN/GLOBULIN RATIO 1.06; ALKALINE PHOSPHATASE 216 IU/L (42-121); ANION GAP 8 (5-13); ASPARTATE AMINO TRANSFERASE 131 IU/L (15-46); BILIRUBIN,INDIRECT 0.2 mg/dl (0-1.1); BILIRUBIN,TOTAL 0.2 mg/dl (0.2-1.3); BLOOD UREA NITROGEN 5 mg/dl (7-20); CARBON DIOXIDE 23 mmol/L (21-31); CHLORIDE 108 mmol/L (97-110); CREATININE 0.35 mg/dl (0.44-1.00); Estimated GFR > 60 mL/min (>60); GLUCOSE 110 mg/dl (70-220); POTASSIUM 4.1 mmol/L (3.5-5.1); SODIUM 139 mmol/L (135-144); TOTAL PROTEIN 6.8 g/dl (6.1-8.1)
[2019-03-23 12:55] LABS: AMYLASE 1384 U/L (11-123)
[2019-03-23 13:21] LABS: LIPASE 6018 U/L (23-300)
[2019-03-23] MEDS: DEXTROSE 5%-LR 1,000 ML IV ×2 (16:10→22:51)
[2019-03-23] MEDS: MEPERIDINE 25 MG INJ IV ×2 (16:27→20:38)
[2019-03-24] MEDS: MEPERIDINE 25 MG INJ IV ×3 (00:49→17:23)
[2019-03-24] MEDS: DEXTROSE 5%-LR 1,000 ML IV (06:05)
[2019-03-24 09:22] LABS: ADD MAN DIFF? NO
[2019-03-24 09:43] LABS: ALANINE AMINOTRANSFERASE 271 IU/L (13-69); ALBUMIN 3.2 g/dl (3.3-4.9); ALKALINE PHOSPHATASE 181 IU/L (42-121); AMYLASE 414 U/L (11-123); ANION GAP 7 (5-13); ASPARTATE AMINO TRANSFERASE 113 IU/L (15-46); BILIRUBIN,INDIRECT 0.6 mg/dl (0-1.1); BILIRUBIN,TOTAL 0.6 mg/dl (0.2-1.3); BLOOD UREA NITROGEN 3 mg/dl (7-20); CALCIUM 8.9 mg/dl (8.4-10.2); CARBON DIOXIDE 24 mmol/L (21-31); CHLORIDE 106 mmol/L (97-110); CREATININE 0.36 mg/dl (0.44-1.00); Estimated GFR > 60 mL/min (>60); GLUCOSE 97 mg/dl (70-220); LIPASE 372 U/L (23-300); POTASSIUM 3.7 mmol/L (3.5-5.1); SODIUM 137 mmol/L (135-144); TOTAL PROTEIN 6.1 g/dl (6.1-8.1)
[2019-03-24 10:47] LABS: WHITE BLOOD COUNT 12.2 10^3/ul (4.8-10.8)
[2019-03-24 10:47] LABS: BASOPHILS % 0.2 % (0.0-2.0); EOSINOPHILS % 0.2 % (0.0-7.0); HEMATOCRIT 31.6 % (37.0-47.0); HEMOGLOBIN 10.5 g/dl (12.0-16.0); LYMPHOCYTES # 1.1 10^3/ul (0.8-2.9); LYMPHOCYTES % 9.1 % (18.0-55.0); MEAN CORPUSCULAR HEMOGLOBIN 32.1 pg (29.0-33.0); MEAN CORPUSCULAR HGB CONC 33.2 g/dl (32.0-37.0); MEAN CORPUSCULAR VOLUME 96.6 fl (72.0-104.0); MEAN PLATELET VOLUME 11.1 fl (7.4-10.4); MONOCYTE # 0.7 10^3/ul (0.3-0.9); MONOCYTES % 5.7 % (0.0-13.0); NEUTROPHIL # 10.3 10^3/ul (1.6-7.5); NEUTROPHILS % 84.1 % (30.0-74.0); PLATELET COUNT 192 10^3/UL (140-415); RED BLOOD COUNT 3.27 10^6/ul (4.20-5.40); RED CELL DISTRIBUTION WIDTH 12.9 % (11.5-14.5)
[2019-03-24] MEDS: LACTATED RINGER'S 1,000 ML IV ×2 (14:11→23:03)
[2019-03-25] MEDS: LACTATED RINGER'S 1,000 ML IV ×3 (07:06→22:29)
[2019-03-25 08:21] LABS: ADD MAN DIFF? NO
[2019-03-25 08:28] LABS: BASOPHILS % 0.2 % (0.0-2.0); EOSINOPHILS # 0.1 10^3/ul (0.0-0.5); EOSINOPHILS % 0.5 % (0.0-7.0); HEMATOCRIT 29.6 % (37.0-47.0); HEMOGLOBIN 9.8 g/dl (12.0-16.0); LYMPHOCYTES # 1.3 10^3/ul (0.8-2.9); LYMPHOCYTES % 13.6 % (18.0-55.0); MEAN CORPUSCULAR HEMOGLOBIN 32.1 pg (29.0-33.0); MEAN CORPUSCULAR HGB CONC 33.1 g/dl (32.0-37.0); MEAN PLATELET VOLUME 11.1 fl (7.4-10.4); MONOCYTE # 0.7 10^3/ul (0.3-0.9); MONOCYTES % 6.9 % (0.0-13.0); NEUTROPHIL # 7.3 10^3/ul (1.6-7.5); NEUTROPHILS % 78.2 % (30.0-74.0); PLATELET COUNT 179 10^3/UL (140-415); RED BLOOD COUNT 3.05 10^6/ul (4.20-5.40); RED CELL DISTRIBUTION WIDTH 12.9 % (11.5-14.5)
[2019-03-25 08:28] LABS: WHITE BLOOD COUNT 9.4 10^3/ul (4.8-10.8)
[2019-03-25 08:53] LABS: ALANINE AMINOTRANSFERASE 211 IU/L (13-69); ALBUMIN/GLOBULIN RATIO 1.03; ALKALINE PHOSPHATASE 185 IU/L (42-121); AMYLASE 133 U/L (11-123); ANION GAP 8 (5-13); ASPARTATE AMINO TRANSFERASE 70 IU/L (15-46); BILIRUBIN,INDIRECT 0.4 mg/dl (0-1.1); BILIRUBIN,TOTAL 0.4 mg/dl (0.2-1.3); BLOOD UREA NITROGEN 3 mg/dl (7-20); CALCIUM 8.8 mg/dl (8.4-10.2); CARBON DIOXIDE 24 mmol/L (21-31); CHLORIDE 105 mmol/L (97-110); CREATININE 0.37 mg/dl (0.44-1.00); Estimated GFR > 60 mL/min (>60); GLUCOSE 67 mg/dl (70-220); LIPASE 187 U/L (23-300); POTASSIUM 3.5 mmol/L (3.5-5.1); SODIUM 137 mmol/L (135-144); TOTAL PROTEIN 5.9 g/dl (6.1-8.1)
[2019-03-26] MEDS: LACTATED RINGER'S 1,000 ML IV (05:58)
[2019-03-26 07:21] LABS: ADD MAN DIFF? NO
[2019-03-26 07:37] LABS: WHITE BLOOD COUNT 8.3 10^3/ul (4.8-10.8)
[2019-03-26 07:37] LABS: BASOPHILS % 0.2 % (0.0-2.0); EOSINOPHILS # 0.1 10^3/ul (0.0-0.5); HEMATOCRIT 30.2 % (37.0-47.0); HEMOGLOBIN 9.9 g/dl (12.0-16.0); LYMPHOCYTES # 1.5 10^3/ul (0.8-2.9); LYMPHOCYTES % 18.6 % (18.0-55.0); MEAN CORPUSCULAR HGB CONC 32.8 g/dl (32.0-37.0); MEAN CORPUSCULAR VOLUME 97.7 fl (72.0-104.0); MONOCYTE # 0.6 10^3/ul (0.3-0.9); MONOCYTES % 7.2 % (0.0-13.0); PLATELET COUNT 204 10^3/UL (140-415); RED BLOOD COUNT 3.09 10^6/ul (4.20-5.40)
[2019-03-26 07:56] LABS: ALANINE AMINOTRANSFERASE 151 IU/L (13-69); ALBUMIN 2.7 g/dl (3.3-4.9); ALKALINE PHOSPHATASE 206 IU/L (42-121); ASPARTATE AMINO TRANSFERASE 40 IU/L (15-46); BILIRUBIN,INDIRECT 0.3 mg/dl (0-1.1); BILIRUBIN,TOTAL 0.3 mg/dl (0.2-1.3); TOTAL PROTEIN 5.5 g/dl (6.1-8.1)
[2019-03-26 08:02] LABS: LIPASE 213 U/L (23-300)
[2019-03-26 08:02] LABS: AMYLASE 99 U/L (11-123)
[2019-03-26 08:22] LABS: ALANINE AMINOTRANSFERASE 151 IU/L (13-69); ALBUMIN/GLOBULIN RATIO 0.96; ALKALINE PHOSPHATASE 210 IU/L (42-121); ANION GAP 6 (5-13); ASPARTATE AMINO TRANSFERASE 42 IU/L (15-46); BILIRUBIN,INDIRECT 0.3 mg/dl (0-1.1); BILIRUBIN,TOTAL 0.3 mg/dl (0.2-1.3); BLOOD UREA NITROGEN 4 mg/dl (7-20); CALCIUM 8.4 mg/dl (8.4-10.2); CARBON DIOXIDE 23 mmol/L (21-31); CHLORIDE 110 mmol/L (97-110); CREATININE 0.35 mg/dl (0.44-1.00); Estimated GFR > 60 mL/min (>60); GLUCOSE 78 mg/dl (70-220); POTASSIUM 3.9 mmol/L (3.5-5.1); SODIUM 139 mmol/L (135-144); TOTAL PROTEIN 6.1 g/dl (6.1-8.1)
== END 2019-03-26 17:00 | disposition home or self-care (01) | DRG 832 ==
LOC: OBT 09:02 → L-D 03-25 17:22 → OBT 15:30 → PP1 15:30
DX: O26.893 Other specified pregnancy related conditions, third trimester (principal); K86.1 Other chronic pancreatitis; Z3A.33 33 weeks gestation of pregnancy
CPT/HCPCS: 36415; 76815; 76817; 80053; 80076; 81001; 81003; 82150; 82731; 83690; 85025; 87086

== ENCOUNTER 2019-04-20 20:55 | Outpatient (CLI) | payer OTHER ==
[2019-04-20 22:56] LABS: ADD UMIC NO; UR ASCORBIC ACID NEGATIVE (NEGATIVE); UR BILIRUBIN (Dip) NEGATIVE (NEGATIVE); UR BLOOD (Dip) NEGATIVE (NEGATIVE); UR CLARITY CLEAR (CLEAR); UR COLOR YELLOW (YELLOW); UR GLUCOSE (Dip) NEGATIVE (NEGATIVE); UR KETONES (Dip) NEGATIVE (NEGATIVE); UR LEUKOCYTE ESTERASE (Dip) NEGATIVE Leu/ul (NEGATIVE); UR NITRITE (Dip) NEGATIVE (NEGATIVE); UR SPECIFIC GRAVITY (Dip) 1.015 (1.003-1.030); UR TOTAL PROTEIN (Dip) NEGATIVE (NEGATIVE); UR UROBILINOGEN (Dip) 1+ mg/dL (NEGATIVE)
[2019-04-20 23:15] LABS: RUPTURE FETAL MEMBRANES NEGATIVE (NEGATIVE)
== END 2019-04-21 00:15 | disposition home or self-care (01) ==
LOC: OBT 20:55 → L-D 20:56
DX: O42.913 Preterm premature rupture of membranes, unspecified as to length of time between rupture and onset of labor, third trimester (principal); Z3A.37 37 weeks gestation of pregnancy
CPT/HCPCS: 76818; 81003; 84112

== ENCOUNTER 2019-05-08 16:53 | Inpatient (IN) | payer OTHER ==
[2019-05-08] MEDS ORDERED: MISOPROSTOL 200 MCG TAB PR (20:00)
[2019-05-08] MEDS ORDERED: BUTORPHANOL 2 MG INJ IV ×2 (20:00)
[2019-05-08] MEDS ORDERED: OXYTOCIN 30 UNITS/LR 500 ML IV ×3 (20:00)
[2019-05-08] MEDS ORDERED: LIDOCAINE 1% (MPF) 30 ML INJ INJ (20:00)
[2019-05-08] MEDS ORDERED: METHYLERGONOVINE 0.2 MG INJ IM (20:00)
[2019-05-08] MEDS ORDERED: IBUPROFEN 600 MG TAB PO (20:00)
[2019-05-08] MEDS ORDERED: CARBOPROST 250 MCG INJ IM (20:00)
[2019-05-08] MEDS: LACTATED RINGER'S 1,000 ML IV (21:32)
[2019-05-08] MEDS: MISOPROSTOL 50 MCG CAPSULE PO (21:43)
[2019-05-08 21:54] LABS: ADD MAN DIFF? NO
[2019-05-08 21:58] LABS: BASOPHILS % 0.3 % (0.0-2.0); EOSINOPHILS # 0.1 10^3/ul (0.0-0.5); EOSINOPHILS % 1.5 % (0.0-7.0); HEMATOCRIT 33.1 % (37.0-47.0); HEMOGLOBIN 10.9 g/dl (12.0-16.0); LYMPHOCYTES # 1.4 10^3/ul (0.8-2.9); LYMPHOCYTES % 20.8 % (18.0-55.0); MEAN CORPUSCULAR HEMOGLOBIN 31.5 pg (29.0-33.0); MEAN CORPUSCULAR HGB CONC 32.9 g/dl (32.0-37.0); MEAN CORPUSCULAR VOLUME 95.7 fl (72.0-104.0); MEAN PLATELET VOLUME 12.6 fl (7.4-10.4); MONOCYTE # 0.4 10^3/ul (0.3-0.9); MONOCYTES % 6.2 % (0.0-13.0); NEUTROPHIL # 4.7 10^3/ul (1.6-7.5); NEUTROPHILS % 70.7 % (30.0-74.0); PLATELET COUNT 158 10^3/UL (140-415); RED BLOOD COUNT 3.46 10^6/ul (4.20-5.40)
[2019-05-08 21:58] LABS: WHITE BLOOD COUNT 6.6 10^3/ul (4.8-10.8)
[2019-05-08 22:18] LABS: INR 0.82; PROTIME 11.4 Sec (11.9-14.9); PT RATIO 0.9
[2019-05-08 22:19] LABS: PARTIAL THROMBOPLASTIN TIME 29.9 Sec (23.0-35.0)
[2019-05-08 22:45] LABS: HEPATITIS B SURFACE ANTIGEN NEGATIVE (NEGATIVE)
[2019-05-09] MEDS: MISOPROSTOL 50 MCG CAPSULE PO ×3 (01:41→09:29)
[2019-05-09] MEDS: LACTATED RINGER'S 1,000 ML IV ×4 (05:29→22:58)
[2019-05-09] MEDS: OXYTOCIN 30 UNITS/LR 500 ML IV (14:27)
[2019-05-09 15:04] LABS: RAPID PLASMA REAGIN NONREACTIVE (NR)
[2019-05-09] MEDS ORDERED: FENTAnyl 2MCG/ML-ROPIV 0.2% 100 ML (16:35)
[2019-05-09] MEDS ORDERED: NALOXONE (0.4 MG/ML) INJ IV (17:00)
[2019-05-09] MEDS ORDERED: ONDANSETRON 4 MG INJ IV (17:00)
[2019-05-09] MEDS: FENTAnyl 2MCG/ML-ROPIV 0.2% 100 ML BAG EPI (17:33)
[2019-05-09] MEDS: DIPHENHYDRAMINE 50 MG INJ IV (23:47)
[2019-05-10] MEDS: LACTATED RINGER'S 1,000 ML IV ×4 (00:48→14:19)
[2019-05-10] MEDS: FENTAnyl 2MCG/ML-ROPIV 0.2% 100 ML BAG EPI ×2 (01:25→09:33)
[2019-05-10] MEDS ORDERED: SODIUM CHLORIDE 0.9% 1L IRRIG IRR (07:00)
[2019-05-10] MEDS: MINERAL OIL LIGHT 10 ML VIAL TOP (08:00)
[2019-05-10] MEDS ORDERED: CEFAZOLIN 2 GM/50 ML (PMX) 50 ML IVPB (10:00)
[2019-05-10] MEDS ORDERED: OXYTOCIN 30 UNITS/LR 500 ML BAG IV (10:12)
[2019-05-10] MEDS ORDERED: OXYTOCIN 10 UNIT INJ (10:13)
[2019-05-10] MEDS ORDERED: LIDOCAINE 2% (SDV) 5 ML INJ (10:15)
[2019-05-10] MEDS ORDERED: NA BICARBONATE 8.4% 50 ML SYG (10:16)
[2019-05-10] MEDS ORDERED: DEXAMETHASONE 4 MG/ML 1 ML INJ (10:16)
[2019-05-10] MEDS ORDERED: morphine SULFATE/PF (10 MG/10 ML) INJ (10:16)
[2019-05-10] MEDS ORDERED: KETOROLAC 30 MG INJ (10:16)
[2019-05-10] MEDS ORDERED: METOCLOPRAMIDE 10 MG INJ (10:16)
[2019-05-10] MEDS ORDERED: MEPERIDINE 100 MG INJ (10:34)
[2019-05-10] MEDS ORDERED: NALBUPHINE HCL (10 MG/1 ML) INJ IV (11:00)
[2019-05-10] MEDS ORDERED: NALOXONE (0.4 MG/ML) INJ IV (11:00)
[2019-05-10] MEDS ORDERED: OXYCODONE/ACETAMINOPHEN (5/325) TAB PO ×2 (11:00→14:30)
[2019-05-10] MEDS ORDERED: HYDROmorphONE 1 MG/5 ML IV SYRINGE IV ×2 (11:00)
[2019-05-10] MEDS ORDERED: FENTAnyl 50 MCG/ML VIAL IV ×2 (11:00)
[2019-05-10] MEDS ORDERED: DIPHENHYDRAMINE 50 MG INJ IV ×2 (11:00)
[2019-05-10] MEDS ORDERED: LABETALOL HCL 20MG INJ IV (11:00)
[2019-05-10] MEDS ORDERED: MEPERIDINE 25 MG INJ IV (11:00)
[2019-05-10] MEDS ORDERED: EPHEDrine 25 MG/5 ML SYG IV (11:00)
[2019-05-10] MEDS ORDERED: HYDROCODONE/APAP (5/325) TAB PO (11:00)
[2019-05-10] MEDS ORDERED: HYDROmorphONE 0.5 MG/0.5 ML SYG IV ×2 (11:00)
[2019-05-10] MEDS ORDERED: ONDANSETRON 4 MG INJ IV ×2 (11:00)
[2019-05-10] MEDS ORDERED: morphine 2 MG INJ IV ×2 (11:00)
[2019-05-10] MEDS ORDERED: ACETAMINOPHEN 500 MG TAB PO (11:00)
[2019-05-10 11:01] LABS: AADO2 Venous 28.9 mmHg; MODE ROOM AIR; Sample Type CBV; Site CORD; Venous Fraction OxyHgb 73.7 %; Venous Oxygen Sat 75.2 mmHG (55.0-75.0); Venous Total Hemglobin 21.3 g/dl
[2019-05-10] MEDS ORDERED: MISOPROSTOL 200 MCG TAB PR (14:30)
[2019-05-10] MEDS ORDERED: METHYLERGONOVINE 0.2 MG INJ IM (14:30)
[2019-05-10] MEDS ORDERED: OXYTOCIN 30 UNITS/LR 500 ML IV (14:30)
[2019-05-10] MEDS ORDERED: CARBOPROST 250 MCG INJ IM (14:30)
[2019-05-10] MEDS: OXYTOCIN 30 UNITS/LR 500 ML IV (14:36)
[2019-05-10] MEDS: LANOLIN HPA 1 PKT TOP (17:39)
[2019-05-10] MEDS: SENNA/DOCUSATE NA (8.6MG/50MG) TAB PO (21:00)
[2019-05-11] MEDS: KETOROLAC 30 MG INJ IV ×2 (03:14→09:16)
[2019-05-11 08:34] LABS: ADD MAN DIFF? NO
[2019-05-11 08:46] LABS: WHITE BLOOD COUNT 11.7 10^3/ul (4.8-10.8)
[2019-05-11 08:46] LABS: BASOPHILS % 0.2 % (0.0-2.0); EOSINOPHILS % 0.3 % (0.0-7.0); HEMATOCRIT 22.7 % (37.0-47.0); HEMOGLOBIN 7.4 g/dl (12.0-16.0); LYMPHOCYTES # 1.8 10^3/ul (0.8-2.9); LYMPHOCYTES % 15.2 % (18.0-55.0); MEAN CORPUSCULAR HEMOGLOBIN 31.9 pg (29.0-33.0); MEAN CORPUSCULAR HGB CONC 32.6 g/dl (32.0-37.0); MEAN CORPUSCULAR VOLUME 97.8 fl (72.0-104.0); MEAN PLATELET VOLUME 12.7 fl (7.4-10.4); MONOCYTE # 0.6 10^3/ul (0.3-0.9); MONOCYTES % 5.3 % (0.0-13.0); NEUTROPHIL # 9.1 10^3/ul (1.6-7.5); NEUTROPHILS % 78.5 % (30.0-74.0); PLATELET COUNT 106 10^3/UL (140-415); RED BLOOD COUNT 2.32 10^6/ul (4.20-5.40); RED CELL DISTRIBUTION WIDTH 13.3 % (11.5-14.5)
[2019-05-11] MEDS: SENNA/DOCUSATE NA (8.6MG/50MG) TAB PO ×2 (09:16→21:45)
[2019-05-11] MEDS: IBUPROFEN 800 MG TAB PO ×2 (13:22→21:46)
[2019-05-11] MEDS: OXYCODONE/ACETAMINOPHEN (5/325) TAB PO (19:23)
[2019-05-11] MEDS: FERROUS SULFATE (EC) 325 MG TAB PO (21:45)
[2019-05-12] MEDS: IBUPROFEN 800 MG TAB PO ×3 (05:41→21:52)
[2019-05-12] MEDS: SENNA/DOCUSATE NA (8.6MG/50MG) TAB PO ×2 (08:04→21:51)
[2019-05-12] MEDS: FERROUS SULFATE (EC) 325 MG TAB PO ×3 (08:04→21:51)
[2019-05-12] MEDS: OXYCODONE/ACETAMINOPHEN (5/325) TAB PO (08:05)
[2019-05-12 08:19] LABS: ADD MAN DIFF? NO
[2019-05-12 08:29] LABS: BASOPHILS % 0.2 % (0.0-2.0); EOSINOPHILS # 0.1 10^3/ul (0.0-0.5); EOSINOPHILS % 0.7 % (0.0-7.0); HEMATOCRIT 23.6 % (37.0-47.0); HEMOGLOBIN 7.9 g/dl (12.0-16.0); LYMPHOCYTES # 1.5 10^3/ul (0.8-2.9); LYMPHOCYTES % 16.2 % (18.0-55.0); MEAN CORPUSCULAR HEMOGLOBIN 31.7 pg (29.0-33.0); MEAN CORPUSCULAR HGB CONC 33.5 g/dl (32.0-37.0); MEAN CORPUSCULAR VOLUME 94.8 fl (72.0-104.0); MONOCYTE # 0.5 10^3/ul (0.3-0.9); NEUTROPHIL # 6.9 10^3/ul (1.6-7.5); NEUTROPHILS % 77.1 % (30.0-74.0); PLATELET COUNT 146 10^3/UL (140-415); RED BLOOD COUNT 2.49 10^6/ul (4.20-5.40); RED CELL DISTRIBUTION WIDTH 13.3 % (11.5-14.5)
[2019-05-12] MEDS: LANOLIN HPA 1 PKT TOP (21:47)
[2019-05-13] MEDS: IBUPROFEN 800 MG TAB PO ×2 (06:16→14:33)
[2019-05-13] MEDS: DIPHTH/TET/ACEL PERTUSS (ADULT) 0.5 ML VIAL IM* (09:00)
[2019-05-13] MEDS: SENNA/DOCUSATE NA (8.6MG/50MG) TAB PO (12:05)
[2019-05-13] MEDS: FERROUS SULFATE (EC) 325 MG TAB PO ×2 (12:06→13:00)
== END 2019-05-13 17:35 | disposition home or self-care (01) | DRG 788 ==
LOC: OBT 16:53 → L-D 05-10 09:57 → PP1 05-10 13:46 → OBT 19:30 → L-D 19:30
PROVIDERS: Obstetrics & Gynecology
PROC: 10D00Z1 Extraction of Products of Conception, Low, Open Approach (ICD-10-PCS; principal; 2019-05-10 10:00)
PROC: 10907ZC Drainage of Amniotic Fluid, Therapeutic from Products of Conception, Via Natural or Artificial Opening (ICD-10-PCS; 2019-05-10 10:00)
DX: O48.0 Post-term pregnancy (principal); O69.81X0 Labor and delivery complicated by cord around neck, without compression, not applicable or unspecified; O76 Abnormality in fetal heart rate and rhythm complicating labor and delivery; Z3A.40 40 weeks gestation of pregnancy; Z37.0 Single live birth
CPT/HCPCS: 36415; 62322; 76815; 76818; 82803; 85025; 85610; 85730; 86592; 86850; 86900; 86901; 87340; 88307; 99464